=== PATIENT | male | born 1990 | race American Indian/Alaskan Native ===

== ENCOUNTER 2021-06-12 13:30 | Emergency (ER) | payer OTHER ==
[2021-06-12] MEDS ORDERED: KETOROLAC 60 MG/2 ML INJ IM ONE (14:16)
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
== END 2021-06-12 15:38 | disposition home or self-care (01) ==
LOC: ED 13:30
DX: S16.1XXA Strain of muscle, fascia and tendon at neck level, initial encounter (principal); S40.011A Contusion of right shoulder, initial encounter; J45.909 Unspecified asthma, uncomplicated; M19.90 Unspecified osteoarthritis, unspecified site; V87.7XXA Person injured in collision between other specified motor vehicles (traffic), initial encounter; Y93.89 Activity, other specified; Y92.488 Other paved roadways as the place of occurrence of the external cause; Y99.8 Other external cause status
CPT/HCPCS: 72125; 73030; 96372; 99283; J1885

== ENCOUNTER 2022-04-13 22:34 | Emergency (ER) | payer OTHER ==
[2022-04-13 22:44] VITALS: BP 117/78
== END 2022-04-13 23:55 | disposition left against medical advice (07) ==
LOC: ED 22:34
DX: R20.0 Anesthesia of skin (principal); Z53.21 Procedure and treatment not carried out due to patient leaving prior to being seen by health care provider